=== PATIENT | male | born 1965 | race Two or more races ===

== ENCOUNTER 2023-11-04 16:41 | Inpatient (IN) | payer OTHER ==
[~2023-11-04] VITALS: Ht 167.6 cm; Wt 68.0 kg
--- NOTE | 2023-11-04 16:47 | NUR ---
SE RECIEB PTE MASCULINO DE 58 ANOS ALERT AY ORIENTADO X3 QUIEN AL MOMENTO REFEIRE LEVE DOLOR PELVICO. PTE INDICA PRECENTAR SECRECIONES CATE EN PENE Y ARDOR AL ORINAR SE MONITOREAN S/V Y SE UBICA
[2023-11-04] MEDS ORDERED: NORVASC5 MG PO (16:49)
[2023-11-04] MEDS ORDERED: TOPROL XL50 M1 PO (16:49)
[2023-11-04] MEDS ORDERED: LEVO-T112 MCG PO (16:49)
--- NOTE | 2023-11-04 17:51 | NUR ---
PACIENTE ALERTA Y ORIENTADO X 3. SE ORIENTA DE TRATAMIENTO MARYJANE ORDEN MEDICA. REFIERE ENTENDER. SE CANALIZA Y SE RADHA MUESTRAS CON MEIDIDAS ASEPTICAS CORRESPONDIENTES.
[2023-11-04 17:59] LABS: HEMATOCRIT 41.1 % (39.0-48.0); HEMOGLOBIN 14.1 g/dL (13-16.00); MEAN CELL VOLUME 84.1 fL (80.0-100.00); MEAN CORPUSCULAR HEMOGLOBIN 28.8 pg (27.00-32.0); MEAN CORPUSCULAR HGB CONC 34.3 g/dl (32.0-36.0); PLATELET COUNT 166 K/uL (150-450); RED BLOOD COUNT 4.89 M/uL (4.00-6.00); RED CELL DISTRIBUTION WIDTH 14.1 % (11.5-14.5)
[2023-11-04 18:33] LABS: PH,URINE 5.5 (5.0-8.0); URINE APPEARANCE Turbid; URINE BILIRRUBIN Small (NEGATIVE); URINE BLOOD Moderate; URINE COLOR Orange; URINE GLUCOSE Negative (NEGATIVE); URINE LEUKOCYTE Large; URINE NITRATE Positive
[2023-11-04 18:37] LABS: ALBUMIN 3.6 gm/dL (3.4-5.0); BILIRUBIN TOTAL 1.16 mg/dL (0.3-1.2); CALCIUM 9.1 mg/dL (8.5-10.1); CREATININE SERUM 0.88 mg/dL (0.70-1.30); GFR 88.64; GLOBULINA 3.9 G/DL (2.4-3.5); POTASSIUM 4.08 mEq/L (3.5-5.1); TOTAL PROTEIN 7.5 gm/dL (6.4-8.2)
[2023-11-04 18:37] LABS: URINE EPITHELIAL CELLS 30.1 uL (0.0-38.8)
[2023-11-04 18:57] LABS: URINE BACTERIA > 9821.5 uL (0.0-1933); URINE PROTEIN 100 (NEGATIVE); URINE WBC > 5548.3 uL (0.0-23.2)
[2023-11-04] MEDS ORDERED: CIPROFLOXACIN IN 5 % DEXTROSE 200 ML IV SCH (22:55)
[2023-11-04] MEDS ORDERED: METRONIDAZOLE/SODIUM CHLORIDE 100 ML IV SCH (22:55)
[2023-11-04] MEDS ORDERED: ACETAMINOPHEN 500 MG GEL..CAP PO PRN (23:00)
[2023-11-04] MEDS ORDERED: ONDANSETRON HCL 4 MG in 0.9 % SODIUM CHLORIDE 50 ML IV PRN (23:00)
[2023-11-04] MEDS ORDERED: 0.9 % SODIUM CHLORIDE 1,000 ML IV SCH (23:00)
[2023-11-05 01:39] LABS: INR 1.11; PARTIAL THROMBOPLASTIN TIME 25.4 SECONDS (22.0-34.0); PROTHROMBIN TIME 11.6 SECONDS (9.0-11.5)
[2023-11-05] MEDS ORDERED: LEVOTHYROXINE SODIUM 112 MCG TABLET PO SCH (06:00)
[2023-11-05] MEDS ORDERED: AMLODIPINE BESYLATE 5 MG TABLET PO SCH (09:00)
[2023-11-05] MEDS ORDERED: ENOXAPARIN SODIUM 40 MG/0.4 ML SYRINGE SUBCUTANEO SCH (09:00)
[2023-11-05] MEDS ORDERED: METOPROLOL SUCCINATE 100 MG TAB.SR.24H PO SCH ×2 (09:00→21:00)
[2023-11-05] MEDS ORDERED: FAMOTIDINE/PF 20 MG in 0.9 % SODIUM CHLORIDE 8 ML IV PUSH SCH (09:00)
[2023-11-05] MEDS ORDERED: ALBUTEROL SULFATE 3 ML/2.5 MG AMPUL.NEB IH SCH (13:00)
[2023-11-05] MEDS ORDERED: TAMSULOSIN HCL 0.4 MG CAP PO STA (15:01)
[2023-11-05] MEDS ORDERED: AMINO ACIDS 4.25 %/DEXTROSE 5% 2,000 ML PERIFERAL SCH (17:00)
[2023-11-05] MEDS ORDERED: LACTOBACILLUS ACIDOPHILUS 1 CAP CAP PO SCH (17:00)
[2023-11-05] MEDS ORDERED: MEROPENEM 500 MG/VIAL VIAL IV SCH (18:00)
[2023-11-05 18:45] LABS: CALCIUM 8.1 mg/dL (8.5-10.1); CHOL HDL RATIO 5.3 (0-5.0); CREATININE SERUM 0.66 mg/dL (0.70-1.30); GFR 123.54; POTASSIUM 3.53 mEq/L (3.5-5.1)
[2023-11-06] MEDS ORDERED: VANCOMYCIN HCL 1,000 MG VIAL IV SCH (05:00)
[2023-11-06] MEDS ORDERED: PATIENTS OWN MEDICATION (MEDICAMENTO EN PISO) PO SCH (06:00)
[2023-11-06 06:11] LABS: HEMATOCRIT 39.9 % (39.0-48.0); HEMOGLOBIN 13.8 g/dL (13-16.00); MEAN CELL VOLUME 86.6 fL (80.0-100.00); MEAN CORPUSCULAR HEMOGLOBIN 29.8 pg (27.00-32.0); MEAN CORPUSCULAR HGB CONC 34.5 g/dl (32.0-36.0); RED BLOOD COUNT 4.61 M/uL (4.00-6.00); RED CELL DISTRIBUTION WIDTH 14.1 % (11.5-14.5)
[2023-11-06 06:15] LABS: PLATELET COUNT 110 K/uL (150-450)
[2023-11-06 06:26] LABS: ALBUMIN 3.2 gm/dL (3.4-5.0); BILIRUBIN TOTAL 0.71 mg/dL (0.3-1.2); CALCIUM 8.6 mg/dL (8.5-10.1); CREATININE SERUM 0.83 mg/dL (0.70-1.30); GFR 94.83; GLOBULINA 3.8 G/DL (2.4-3.5); MAGNESIUM 1.7 mg/dL (1.8-2.4); PHOSPHOROUS 2.5 mg/dL (2.5-4.9); POTASSIUM 4.33 mEq/L (3.5-5.1); TSH 0.445 uIU/mL (0.358-3.74)
[2023-11-06] MEDS ORDERED: TAMSULOSIN HCL 0.4 MG CAP PO SCH (09:00)
[2023-11-06] MEDS ORDERED: MAGNESIUM SULFATE IN WATER 50 ML IV NR (11:00)
[2023-11-07] MEDS ORDERED: FAMOTIDINE/PF 20 MG/2 ML VIAL ONE (07:57)
[2023-11-08] MEDS ORDERED: FAMOTIDINE/PF 20 MG/2 ML VIAL ONE (08:19)
[2023-11-08] MEDS ORDERED: BUDESONIDE 0.5 MG/2 ML AMPUL.NEB IH ONE (09:15)
[2023-11-09 07:06] LABS: HEMOGLOBIN 12.7 g/dL (13-16.00); MEAN CELL VOLUME 84.1 fL (80.0-100.00); MEAN CORPUSCULAR HEMOGLOBIN 28.9 pg (27.00-32.0); MEAN CORPUSCULAR HGB CONC 34.4 g/dl (32.0-36.0); RED BLOOD COUNT 4.39 M/uL (4.00-6.00)
[2023-11-09 07:10] LABS: PLATELET COUNT 115 K/uL (150-450)
[2023-11-09 07:12] LABS: INR 0.99; PARTIAL THROMBOPLASTIN TIME 20.1 SECONDS (22.0-34.0); PROTHROMBIN TIME 10.4 SECONDS (9.0-11.5)
[2023-11-09 07:15] LABS: ALBUMIN 2.8 gm/dL (3.4-5.0); ALKALINE PHOSPHATASE 58 U/L (50-136); ALT/SGPT 40 U/L (12-78); ANION GAP 9 (10.0-20.0); AST/SGOT 55 U/L (15-37); BILIRUBIN,CONJUGATED < 0.10 mg/dL (0.0-0.2); BLOOD UREA NITROGEN 14 mg/dL (7-18); BUN CREA RATIO 25 (7.0-25.0); CALCIUM 8.5 mg/dL (8.5-10.1); CARBON DIOXIDE 27 mEq/L (21-32); CHLORIDE 110 mmol/L (98-107); CHOL HDL RATIO 8.3 (0-5.0); CREATININE SERUM 0.55 mg/dL (0.70-1.30); GFR 152.47; GLOBULINA 3.5 G/DL (2.4-3.5); GLUCOSE FASTING 124 mg/dL (65-100); HDL 16 mg/dl (40-60); OSMOLALITY SERUM 285 MOSM/KG (275-295); POTASSIUM 4.07 mEq/L (3.5-5.1); SODIUM 142 mmol/L (136-145); TOTAL PROTEIN 6.3 gm/dL (6.4-8.2)
[2023-11-09 07:18] LABS: C-REACTIVE PROTEIN 3.41 MG/DL (0.00-0.29); LDL 76 mg/dl (0-130); VLDL 40 (0-39)
[2023-11-09 07:19] LABS: CHOLESTEROL 132 mg/dL (0-200); TRIGLYCERIDES 201 mg/dL (0-150)
[2023-11-09 07:32] LABS: TOTAL IRON BINDING CAPACITY 237 ug/dl (250-450)
[2023-11-09 08:58] LABS: UREA CLEARANCE 68.5 ML/MIN
[2023-11-10] MEDS ORDERED: METHYLPREDNISOLONE SOD SUCC 40 MG VIAL IV NR (09:00)
[2023-11-10] MEDS ORDERED: DIPHENHYDRAMINE HCL 50 MG/ML VIAL 1ML IV NR (09:00)
[2023-11-10] MEDS ORDERED: DIATRIZOATE MEGLUMINE, SODIUM 30 ML BOTTLE PO NR (09:00)
[2023-11-10] MEDS ORDERED: FAMOTIDINE/PF 20 MG in 0.9 % SODIUM CHLORIDE 8 ML IV PUSH SCH (21:00)
[2023-11-11] MEDS ORDERED: MULTIVIT INFUSN,ADULT 4,VIT K 10 ML VIAL IV SCH (09:00)
[2023-11-11 10:30] LABS: CALCIUM 8.9 mg/dL (8.5-10.1); CREATININE SERUM 0.53 mg/dL (0.70-1.30); GFR 159.12; MAGNESIUM 2.1 mg/dL (1.8-2.4); PHOSPHOROUS 2.6 mg/dL (2.5-4.9); POTASSIUM 3.58 mEq/L (3.5-5.1)
[2023-11-11 10:42] LABS: HEMATOCRIT 37.2 % (39.0-48.0); HEMOGLOBIN 12.8 g/dL (13-16.00); MEAN CELL VOLUME 83.6 fL (80.0-100.00); MEAN CORPUSCULAR HEMOGLOBIN 28.9 pg (27.00-32.0); MEAN CORPUSCULAR HGB CONC 34.5 g/dl (32.0-36.0); PLATELET COUNT 188 K/uL (150-450); RED BLOOD COUNT 4.45 M/uL (4.00-6.00); RED CELL DISTRIBUTION WIDTH 13.8 % (11.5-14.5)
[2023-11-11 10:43] LABS: C-REACTIVE PROTEIN 0.69 MG/DL (0.00-0.29)
[2023-11-11 11:05] LABS: ERYTHROCYTE SEDIMENTATION RATE 50 mm/hr
[2023-11-11] MEDS ORDERED: AA 5 %/CALCIUM/LYTES/DEXT 20 % 2,000 ML CENTRAL SCH (17:00)
[2023-11-12] MEDS ORDERED: FAMOTIDINE/PF 20 MG/2 ML VIAL ONE (16:26)
[2023-11-13] MEDS ORDERED: LEVOTHYROXINE SODIUM 100 MCG/VIAL VIAL IV STA (10:38)
[2023-11-13] MEDS ORDERED: ALBUTEROL SULFATE 3 ML/2.5 MG AMPUL.NEB IH SCH (17:00)
[2023-11-14] MEDS ORDERED: CLONAZEPAM 0.5 MG TABLET PO PRN (08:00)
[2023-11-15] MEDS ORDERED: MORPHINE SULFATE 2 MG/ML CARTRIDGE IV PRN (09:00)
[2023-11-16 06:17] LABS: HEMATOCRIT 40.1 % (39.0-48.0); HEMOGLOBIN 13.7 g/dL (13-16.00); MEAN CELL VOLUME 84.5 fL (80.0-100.00); MEAN CORPUSCULAR HEMOGLOBIN 28.8 pg (27.00-32.0); MEAN CORPUSCULAR HGB CONC 34.1 g/dl (32.0-36.0); PLATELET COUNT 231 K/uL (150-450); RED BLOOD COUNT 4.74 M/uL (4.00-6.00); RED CELL DISTRIBUTION WIDTH 14.1 % (11.5-14.5)
[2023-11-16 06:23] LABS: ERYTHROCYTE SEDIMENTATION RATE 40 mm/hr
[2023-11-16 06:50] LABS: PARTIAL THROMBOPLASTIN TIME 25.6 SECONDS (22.0-34.0); PROTHROMBIN TIME 10.5 SECONDS (9.0-11.5)
[2023-11-16 06:57] LABS: ALBUMIN 3.1 gm/dL (3.4-5.0); ALKALINE PHOSPHATASE 85 U/L (50-136); ALT/SGPT 26 U/L (12-78); ANION GAP 7 (10.0-20.0); AST/SGOT 13 U/L (15-37); BILIRUBIN TOTAL 0.56 mg/dL (0.3-1.2); BILIRUBIN,CONJUGATED 0.16 mg/dL (0.0-0.2); BLOOD UREA NITROGEN 16 mg/dL (7-18); BUN CREA RATIO 32 (7.0-25.0); CALCIUM 8.8 mg/dL (8.5-10.1); CARBON DIOXIDE 29 mEq/L (21-32); CHLORIDE 106 mmol/L (98-107); CHOL HDL RATIO 5.3 (0-5.0); CHOLESTEROL 117 mg/dL (0-200); GFR 170.19; GLOBULINA 3.8 G/DL (2.4-3.5); GLUCOSE FASTING 149 mg/dL (65-100); HDL 22 mg/dl (40-60); LDL 72 mg/dl (0-130); OSMOLALITY SERUM 280 MOSM/KG (275-295); POTASSIUM 3.95 mEq/L (3.5-5.1); SODIUM 138 mmol/L (136-145); TOTAL IRON BINDING CAPACITY 350 ug/dl (250-450); TOTAL PROTEIN 6.9 gm/dL (6.4-8.2); TRIGLYCERIDES 113 mg/dL (0-150); VLDL 22 (0-39)
[2023-11-16 06:58] LABS: C-REACTIVE PROTEIN < 0.29 MG/DL (0.00-0.29)
[2023-11-19 06:43] LABS: HEMATOCRIT 37.2 % (39.0-48.0); HEMOGLOBIN 12.7 g/dL (13-16.00); MEAN CELL VOLUME 85.1 fL (80.0-100.00); MEAN CORPUSCULAR HEMOGLOBIN 29.1 pg (27.00-32.0); MEAN CORPUSCULAR HGB CONC 34.3 g/dl (32.0-36.0); PLATELET COUNT 194 K/uL (150-450); RED BLOOD COUNT 4.37 M/uL (4.00-6.00); RED CELL DISTRIBUTION WIDTH 13.9 % (11.5-14.5)
[2023-11-19 06:58] LABS: ALBUMIN 3.1 gm/dL (3.4-5.0); BILIRUBIN TOTAL 0.49 mg/dL (0.3-1.2); CALCIUM 8.8 mg/dL (8.5-10.1); CREATININE SERUM 0.57 mg/dL (0.70-1.30); GFR 146.31; GLOBULINA 3.8 G/DL (2.4-3.5); MAGNESIUM 2.3 mg/dL (1.8-2.4); POTASSIUM 4.62 mEq/L (3.5-5.1); TOTAL PROTEIN 6.9 gm/dL (6.4-8.2)
[2023-11-23 06:46] LABS: HEMATOCRIT 38.1 % (39.0-48.0); HEMOGLOBIN 13.1 g/dL (13-16.00); MEAN CELL VOLUME 85.5 fL (80.0-100.00); MEAN CORPUSCULAR HEMOGLOBIN 29.3 pg (27.00-32.0); MEAN CORPUSCULAR HGB CONC 34.3 g/dl (32.0-36.0); PLATELET COUNT 155 K/uL (150-450); RED BLOOD COUNT 4.46 M/uL (4.00-6.00); RED CELL DISTRIBUTION WIDTH 13.9 % (11.5-14.5)
[2023-11-23 07:15] LABS: ALBUMIN 3.3 gm/dL (3.4-5.0); BILIRUBIN TOTAL 0.62 mg/dL (0.3-1.2); BILIRUBIN,CONJUGATED 0.17 mg/dL (0.0-0.2); BILIRUBIN,UNCONJUGATED 0.45 mg/dL (0.0-0.6); CALCIUM 9.3 mg/dL (8.5-10.1); CHOL HDL RATIO 6.4 (0-5.0); CREATININE SERUM 0.7 mg/dL (0.70-1.30); GFR 115.43; MAGNESIUM 2.3 mg/dL (1.8-2.4); POTASSIUM 4.5 mEq/L (3.5-5.1); TOTAL PROTEIN 7.3 gm/dL (6.4-8.2)
[2023-11-23] MEDS ORDERED: PEG3350/SOD SULF,BICARB,CL/KCL 4,000 ML GALLON PO NR (16:00)
[2023-11-24 16:36] LABS: INR 1.14; PARTIAL THROMBOPLASTIN TIME 28.2 SECONDS (22.0-34.0); PROTHROMBIN TIME 11.9 SECONDS (9.0-11.5)
[2023-11-24] MEDS ORDERED: METRONIDAZOLE/SODIUM CHLORIDE 500 MG/100 ML PIGGYBACK IV ONE (18:00)
[2023-11-24] MEDS ORDERED: levoFLOXacin IN DEXTROSE 5 % 5 MG/ML PIGGYBAG IV ONE (18:00)
[2023-11-24] MEDS ORDERED: SUGAMMADEX SODIUM 200 MG/2 ML VIAL IV ONE (19:15)
[2023-11-24] MEDS ORDERED: OxyCODONE HCL 5 MG TABLET (ROXICODONE) PO PRN (19:45)
[2023-11-24] MEDS ORDERED: MORPHINE SULFATE 4 MG/ML CARTRIDGE IV PRN (19:45)
[2023-11-24] MEDS ORDERED: ONDANSETRON HCL 2 MG/ML VIAL IV PRN (19:45)
[2023-11-24] MEDS ORDERED: ACETAMINOPHEN 500 MG GEL..CAP PO SCH (20:00)
[2023-11-24] MEDS ORDERED: SIMETHICONE 125 MG CAPSULE PO SCH (21:00)
[2023-11-24] MEDS ORDERED: FAMOTIDINE/PF 20 MG/2 ML VIAL IV PUSH SCH (21:00)
[2023-11-24 21:59] LABS: HEMATOCRIT 36.8 % (39.0-48.0); HEMOGLOBIN 12.4 g/dL (13-16.00); MEAN CELL VOLUME 85.9 fL (80.0-100.00); MEAN CORPUSCULAR HGB CONC 33.8 g/dl (32.0-36.0); PLATELET COUNT 151 K/uL (150-450); RED BLOOD COUNT 4.28 M/uL (4.00-6.00); RED CELL DISTRIBUTION WIDTH 14.6 % (11.5-14.5)
[2023-11-25] MEDS ORDERED: METOCLOPRAMIDE HCL 5 MG/ML VIAL IV SCH (01:00)
[2023-11-25] MEDS ORDERED: GABAPENTIN 300 MG CAPSULE PO SCH (01:00)
[2023-11-25] MEDS ORDERED: CELECOXIB 200 MG CAPSULE PO SCH (05:00)
[2023-11-25 08:41] LABS: CALCIUM 8.9 mg/dL (8.5-10.1); CREATININE SERUM 0.94 mg/dL (0.70-1.30); GFR 82.14; MAGNESIUM 2.1 mg/dL (1.8-2.4); PHOSPHOROUS 2.3 mg/dL (2.5-4.9); POTASSIUM 5.48 mEq/L (3.5-5.1)
[2023-11-25] MEDS ORDERED: HYOSCYAMINE SULFATE 0.125 MG TAB.SUBL SL SCH (09:00)
[2023-11-25] MEDS ORDERED: LACTULOSE 20 G/30 ML BLIST.PACK PO SCH (09:00)
[2023-11-25] MEDS ORDERED: LACTOBACILLUS ACIDOPHILUS 1 CAP CAP PO SCH (09:00)
[2023-11-25 13:15] LABS: HEMATOCRIT 37.5 % (39.0-48.0); HEMOGLOBIN 12.7 g/dL (13-16.00); MEAN CELL VOLUME 86.4 fL (80.0-100.00); MEAN CORPUSCULAR HEMOGLOBIN 29.4 pg (27.00-32.0); RED BLOOD COUNT 4.34 M/uL (4.00-6.00); RED CELL DISTRIBUTION WIDTH 14.7 % (11.5-14.5)
[2023-11-25 13:18] LABS: PLATELET COUNT 119 K/uL (150-450)
[2023-11-25] MEDS ORDERED: POLYETHYLENE GLYCOL 3350 17 GM BLIST.PACK PO SCH (17:00)
[2023-11-25] MEDS ORDERED: ENOXAPARIN SODIUM 40 MG/0.4 ML SYRINGE SUBCUTANEO SCH (17:00)
[2023-11-26] MEDS ORDERED: ENOXAPARIN SODIUM 40 MG/0.4 ML SYRINGE SUBCUTANEO SCH ×2 (09:00→17:00)
[2023-11-27] MEDS ORDERED: MORPHINE SULFATE 4 MG/ML CARTRIDGE IV PRN (02:00)
[2023-11-27 08:38] LABS: HEMATOCRIT 29.5 % (39.0-48.0); HEMOGLOBIN 10.3 g/dL (13-16.00); MEAN CELL VOLUME 84.9 fL (80.0-100.00); MEAN CORPUSCULAR HEMOGLOBIN 29.5 pg (27.00-32.0); MEAN CORPUSCULAR HGB CONC 34.8 g/dl (32.0-36.0); RED BLOOD COUNT 3.48 M/uL (4.00-6.00); RED CELL DISTRIBUTION WIDTH 14.5 % (11.5-14.5)
[2023-11-27 08:41] LABS: PLATELET COUNT 93 K/uL (150-450)
[2023-11-27 09:22] LABS: CALCIUM 8.3 mg/dL (8.5-10.1); CREATININE SERUM 0.7 mg/dL (0.70-1.30); GFR 115.43; POTASSIUM 4.27 mEq/L (3.5-5.1)
[2023-11-27] MEDS ORDERED: GAS RELIEF125 MG PO (11:36)
[2023-11-27] MEDS ORDERED: TRAM1TAB98 PO (11:36)
[2023-11-27] MEDS ORDERED: INTESTINEX680 M1 PO (11:36)
[2023-11-27] MEDS ORDERED: SOD FERRIC GLUC COMPLX/SUCROSE 62.5 MG in 0.9 % SODIUM CHLORIDE 50 ML IV SCH (12:00)
== END 2023-11-27 13:09 | disposition home or self-care (01) | DRG 330 ==
LOC: ER 16:41 → MEDI 22:58 → MEDJ 22:58 → MEDI 11-09 08:39 → MEDJ 11-19 13:06
PROVIDERS: Colon & Rectal Surgery; General Practice; Internal Medicine; Specialist; ADMIT Internal Medicine Geriatric Medicine; ATTEND Internal Medicine Geriatric Medicine
PROC: BW21YZZ Computerized Tomography (CT Scan) of Abdomen and Pelvis using Other Contrast (ICD-10-PCS; 2023-11-04)
PROC: 02HV33Z Insertion of Infusion Device into Superior Vena Cava, Percutaneous Approach (ICD-10-PCS; 2023-11-05)
PROC: BW21YZZ Computerized Tomography (CT Scan) of Abdomen and Pelvis using Other Contrast (ICD-10-PCS; 2023-11-10)
PROC: 0TBB4ZZ Excision of Bladder, Percutaneous Endoscopic Approach (ICD-10-PCS; 2023-11-24)
PROC: 0DBP4ZZ Excision of Rectum, Percutaneous Endoscopic Approach (ICD-10-PCS; 2023-11-24)
PROC: 0DJD8ZZ Inspection of Lower Intestinal Tract, Via Natural or Artificial Opening Endoscopic (ICD-10-PCS; 2023-11-24)
PROC: 0DTN4ZZ Resection of Sigmoid Colon, Percutaneous Endoscopic Approach (ICD-10-PCS; principal; 2023-11-24 21:00)
DX: K57.32 Diverticulitis of large intestine without perforation or abscess without bleeding (principal); E46 Unspecified protein-calorie malnutrition; N32.1 Vesicointestinal fistula; N39.0 Urinary tract infection, site not specified; I10 Essential (primary) hypertension; E03.9 Hypothyroidism, unspecified